=== PATIENT | female | born 1975 | race Caucasian/White ===

== ENCOUNTER 2017-11-12 18:48 | Emergency (ER) | payer BC, OTHER ==
[~2017-11-12] VITALS: Ht 170.2 cm; Wt 83.7 kg
[~2017-11-12 18:48] MED LIST: ACET-1256 PO; BABY ASPIRIN PO; CLR10 PO; PRENTAB26
[2017-11-12 19:01] VITALS: TEMP 36.7; Ht 170.2 cm; Wt 83.7 kg
[2017-11-12] MEDS ORDERED: MONT1TAB5 PO (19:21)
[2017-11-12] MEDS ORDERED: IBUP-103 PO (19:21)
--- NOTE | 2017-11-12 19:31 | EMERGENCY ROOM VISIT NOTE ---
History Report prepared by Eder: Maureen Abraham Under the Supervision of: Dr. Alexis Hilario M.D. First contact with patient: 19:09 Chief Complaint: SYNCOPE Stated Complaint: HYPOGLYCEMIA, NEAR SYNCOPE Nursing Triage Summary: pt arrives via EMS reports while at F/u appt with son became dizzy and nauseated with syncopal episode, pt denies LEDESMA , vision changes or speech changes History of Present Illness The patient is a 42 year old white female with no significant past medical history who presents to the ED with a cc of an episode of syncope occurring about 1 hour [employer]IST[employer]. She was at a doctor's appointment for her son when she suddenly became dizzy and nauseated and felt like she was going to pass out. She did lose consciousness for a short period of time. She was sitting in a chair and did not fall or injure herself. Staff witnessed the event and denied any seizure-like activity. They checked her blood pressure and it was low. Staff recommended that the patient call an ambulance and come to the ED for further evaluation. The patient does not have any complaints at this time other than she just generally feels unwell. Negative fevers, headaches, chills, cough , visual changes, incontinence, leg pain or swelling. She did not bite her tongue. She denies any personal history of blood clots and any recent travel. 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 A total of ten systems were reviewed and were otherwise negative. Past Medical & Surgical Medical Problems: (1) No significant active problems Family History No pertinent history stated. Social History Smoking Status: Never Smoker Smokeless Tobacco Use: No Alcohol Use: occasionally Drug Use: none Marital Status: Housing Status: lives with family Current/Historical Medications Scheduled Loratadine (Claritin), 10 MG PO DAILY Montelukast Sodium (Montelukast Sodium), 10 MG PO QPM Scheduled PRN Ibuprofen Tab (Advil), 200 MG PO UD PRN for Pain or Fever Allergies Coded Allergies: Cat Dander (Verified Allergy, Mild, 08/04/07) Dog Dander (Verified Allergy, Mild, 08/04/07) No Known Allergies (Verified Allergy, Mild, 08/04/07) Physical Exam Vital Signs Date Time Temp Pulse Resp B/P (MAP) Pulse Ox O2 Delivery O2 Flow Rate FiO2 11/12/17 21:04 74 18 118/66 98 Room Air 11/12/17 20:15 112 20 161/97 97 Room Air 11/12/17 19:18 69 131/72 77 129/85 87 135/87 11/12/17 19:09 73 11/12/17 19:01 36.7 73 18 135/87 99 Room Air Physical Exam GENERAL: Awake, alert, well-appearing, NAD HENT: Normocephalic, atraumatic. EYES: Normal conjunctiva. Sclera non-icteric. NECK: Supple. No nuchal rigidity. FROM. RESPIRATORY: CTAB, no rhonchi, wheezing, crackles CARDIAC: RRR, no MRG ABDOMEN: Soft, NTND, BS+ MSK: No chest wall TTP, no LE edema NEURO: GCS 15, CN 2-12 intact, moves all 4s on command SKIN: No rash or jaundice noted. Medical Decision & Procedures ER Provider Diagnostic Interpretation: Radiology results as stated below per my review and radiologist interpretation: CHEST ONE VIEW PORTABLE CLINICAL HISTORY: EVALUATE ALTERED MENTAL STATUS/WEAKNESS COMPARISON STUDY: No previous studies for comparison. FINDINGS: Lung volumes are normal. Lungs are clear. No pneumothorax or pleural effusion is noted. Cardiomediastinal silhouette is normal. Pulmonary vascularity is normal. IMPRESSION: No acute cardiopulmonary findings. Electronically signed by: Dank Chen M.D. 11/12/2017 8:20 PM Dictated Date/Time: 11/12/2017 8:20 PM Laboratory Results 11/12/17 19:50 Red Blood Count 4.64, Mean Corpuscular Volume 90.7, Mean Corpuscular Hemoglobin 31.5, Mean Corpuscular Hemoglobin Concent 34.7, Mean Platelet Volume 9.6, Neutrophils (%) (Auto) 84.1, Lymphocytes (%) (Auto) 12.1, Monocytes (%) (Auto) 2.8, Eosinophils (%) (Auto) 0.5, Basophils (%) (Auto) 0.2, Neutrophils # (Auto) 12.41, Lymphocytes # (Auto) 1.78, Monocytes # (Auto) 0.42, Eosinophils # (Auto) 0.07, Basophils # (Auto) 0.03 11/12/17 19:50 Test 11/12/17 19:50 White Blood Count 14.76 K/uL (4.8-10.8) Red Blood Count 4.64 M/uL (4.2-5.4) Hemoglobin 14.6 g/dL (12.0-16.0) Hematocrit 42.1 % (37-47) Mean Corpuscular Volume 90.7 fL (80-100) Mean Corpuscular Hemoglobin 31.5 pg (25-34) Mean Corpuscular Hemoglobin Concent 34.7 g/dl (32-36) Platelet Count 290 K/uL (130-400) Mean Platelet Volume 9.6 fL (7.4-10.4) Neutrophils (%) (Auto) 84.1 % Lymphocytes (%) (Auto) 12.1 % Monocytes (%) (Auto) 2.8 % Eosinophils (%) (Auto) 0.5 % Basophils (%) (Auto) 0.2 % Neutrophils # (Auto) 12.41 K/uL (1.4-6.5) Lymphocytes # (Auto) 1.78 K/uL (1.2-3.4) Monocytes # (Auto) 0.42 K/uL (0.11-0.59) Eosinophils # (Auto) 0.07 K/uL (0-0.5) Basophils # (Auto) 0.03 K/uL (0-0.2) RDW Standard Deviation 43.1 fL (36.4-46.3) RDW Coefficient of Variation 13.0 % (11.5-14.5) Immature Granulocyte % (Auto) 0.3 % Immature Granulocyte # (Auto) 0.05 K/uL (0.00-0.02) Urine Color YELLOW Urine Appearance CLEAR (CLEAR) Urine pH 8.0 (4.5-7.5) Urine Specific [place] 1.015 (1.000-1.030) Urine Protein NEG (NEG) Urine Glucose (UA) NEG (NEG) Urine Ketones NEG (NEG) Urine Occult Blood NEG (NEG) Urine Nitrite NEG (NEG) Urine Bilirubin NEG (NEG) Urine Urobilinogen NEG (NEG) Urine Leukocyte Esterase SMALL (NEG) Urine WBC (Auto) 1-5 /hpf (0-5) Urine RBC (Auto) 0-4 /hpf (0-4) Urine Hyaline Casts (Auto) 1-5 /lpf (0-5) Urine Epithelial Cells (Auto) >30 /lpf (0-5) Urine Bacteria (Auto) NEG (NEG) Urine Renal Epithelial Cells 0-5 /lpf (0-5) Anion Gap 7.0 mmol/L (3-11) Est Creatinine Clear Calc Drug Dose 84.0 ml/min Estimated GFR () 84.0 Estimated GFR (Non- 72.4 BUN/Creatinine Ratio 14.3 (10-20) Calcium Level 9.2 mg/dl (8.5-10.1) Magnesium Level 2.0 mg/dl (1.8-2.4) Total Bilirubin 0.3 mg/dl (0.2-1) Direct Bilirubin < 0.1 mg/dl (0-0.2) Aspartate Amino Transf (AST/SGOT) 24 U/L (15-37) Alanine Aminotransferase (ALT/SGPT) 41 U/L (12-78) Alkaline Phosphatase 66 U/L (45-117) Total Protein 8.0 gm/dl (6.4-8.2) Albumin 4.0 gm/dl (3.4-5.0) Thyroid Stimulating Hormone (TSH) 1.750 uIu/ml (0.300-4.500) Laboratory results reviewed by me. ECG Indication: syncope Rate (beats per minute): 62 Rhythm: normal sinus Findings: no ectopy, other (normal intervals, normal axis; no STS changes or TWI) Change: ECG as interpreted by myself. ED Course 1908: The patient was evaluated in room A4B. A complete history and physical exam was performed. 2052: I reassessed the patient at this time. She is feeling better and resting comfortably. I discussed the results and treatment plan with the patient. I answered all pertaining questions that she had. She expressed understanding and verbalized agreement. The patient will be discharged home. Medical Decision Differential diagnosis: Etiologies such as vasovagal event, infection, hypoglycemia, electrolyte abnormalities, cardiac sources, intracerebral event, toxicologic, neurologic, as well as others were entertained. The patient is a 42 year old white female with no significant past medical history who presents to the ED with a cc of an episode of syncope occurring about 1 hour [employer]IST[employer]. Patient was seen and evaluated the bedside. Patient was at a clinic appointment for her son associated recently hurt his knee. Patient denies any other recent stress. Patient denies any recent changes in positions. Patient did say that she felt warm all over and may be followed as it was her her heart was racing. Patient denies this happening in the past. Patient denies any infectious symptoms. Patient denies any chest pain or shortness of breath. Patient denies nausea or vomiting. Patient did have blood work completed, EKG, chest x-ray, TSH. Patient's blood work fairly unremarkable. Patient did have mild what blood cell count of 14,000 however the patient does not have any infectious symptoms and has stable vital signs. This may just be reactive in nature. Patient's chest x-ray was clear. Patient's EKG is nonischemic and without any overt arrhythmia. Patient's TSH normal. Patient's urinalysis negative for infection. I did discuss all findings with the patient. Told that she may follow up as needed. We did discuss that if this is a persistent issue she should follow-up. Patient was given follow-up instructions and signs for which to return to the emergency department. She was agreeable to plan of care and all questions were answered. Patient was given strict follow-up, discharge, and return precautions. All questions were answered. Patient was deemed suitable for outpatient follow-up at this time. Patient agreed with the plan of care and was safely discharged home. The chart was completed utilizing [employer] Speech voice recognition software. Grammatical errors, random word insertions, pronoun errors, and incomplete sentences are an occasional consequence of this system due to software limitations, ambient noise, and hardware issues. Any formal questions or concerns about the content, text, or information contained within the body of this dictation should be directly addressed to the physician for clarification. Medication Reconcilliation Current Medication List: was personally reviewed by me Blood Pressure Screening Patient's blood pressure: Normal blood pressure Impression Primary Impression: Syncope Scribe Attestation The scribe's documentation has been prepared under my direction and personally reviewed by me in its entirety. I confirm that the note above accurately reflects all work, treatment, procedures, and medical decision making performed by me. Departure Information Dispostion Home / Self-Care Forms HOME CARE DOCUMENTATION FORM, IMPORTANT VISIT INFORMATION Patient Instructions Fainting (Syncope) - [facility], My [facility], Syncope Additional Instructions Please return to the emergency department if you have worsening or recurrent symptoms not amenable to at-home treatment. Please call for a follow-up appointment with her primary care physician. Please take your medications as prescribed. If you have other concerns and/or complaints please feel free to also call your primary care physician's office or return the ED for further evaluation, management, and treatment. Please be careful as you change positions. If you have ever do feel lightheaded or if you are going to pass out please find a safe area and either sit or lay down. You have been examined and treated today on an emergency basis only. This is not a substitute for, or an effort to provide, complete comprehensive medical care. It is impossible to recognize and treat all injuries or illnesses in a single emergency department visit. It is therefore important that you follow up closely with [facility], your PCP, and/or your specialist(s). Call as soon as possible for an appointment. Thank you for your time and consideration. I look forward to speaking with you again soon. Please don't hesitate to call us if you have any questions. Problem Qualifiers Primary Impression: Syncope Syncope type: unspecified Qualified Codes: R55 - Syncope and collapse
[2017-11-12 20:03] LABS: BASO % 0.2 %; BASO ABS # 0.03 K/uL (0-0.2); EOS % 0.5 %; EOS ABS # 0.07 K/uL (0-0.5); HEMATOCRIT 42.1 % (37-47); HEMOGLOBIN 14.6 g/dL (12.0-16.0); IG# 0.05 K/uL (0.00-0.02); LYMPH % 12.1 %; LYMPH ABS # 1.78 K/uL (1.2-3.4); MEAN CELL VOLUME 90.7 fL (80-100); MEAN CORPUSCULAR HEMOGLOBIN 31.5 pg (25-34); MEAN CORPUSCULAR HGB CONC 34.7 g/dl (32-36); MEAN PLATELET VOLUME 9.6 fL (7.4-10.4); MONO % 2.8 %; MONO ABS # 0.42 K/uL (0.11-0.59); NEUT % 84.1 %; NEUT ABS # 12.41 K/uL (1.4-6.5); PLATELET COUNT 290 K/uL (130-400); RED CELL DISTRIBUTION WIDTH SD 43.1 fL (36.4-46.3); WHITE BLOOD COUNT 14.76 K/uL (4.8-10.8)
[2017-11-12 20:20] LABS: ALT/SGPT 41 U/L (12-78); BLOOD UREA NITROGEN 14 mg/dl (7-18); CALCIUM 9.2 mg/dl (8.5-10.1); CARBON DIOXIDE 25 mmol/L (21-32); CREATININE 0.96 mg/dl (0.60-1.20); GLUCOSE 111 mg/dl (70-99); POTASSIUM 3.7 mmol/L (3.5-5.1); SODIUM 138 mmol/L (136-145)
--- NOTE | 2017-11-12 20:21 | DIAGNOSTIC IMAGING REPORT ---
CHEST ONE VIEW PORTABLE CLINICAL HISTORY: EVALUATE ALTERED MENTAL STATUS/WEAKNESS COMPARISON STUDY: No previous studies for comparison. FINDINGS: Lung volumes are normal. Lungs are clear. No pneumothorax or pleural effusion is noted. Cardiomediastinal silhouette is normal. Pulmonary vascularity is normal. IMPRESSION: No acute cardiopulmonary findings. Electronically signed by: Dank Chen M.D. 11/12/2017 8:20 PM Dictated Date/Time: 11/12/2017 8:20 PM
[2017-11-12 20:31] LABS: ALKALINE PHOSPHATASE 66 U/L (45-117); AST/SGOT 24 U/L (15-37)
[2017-11-12 21:04] VITALS: BP 118/66; PULSE 74; O2SAT 98
== END 2017-11-12 21:27 | disposition home or self-care (01) ==
LOC: EDBD 18:48 → C.EDA 18:49
DX: R55 Syncope and collapse (principal); Z79.899 Other long term (current) drug therapy